=== PATIENT | male | born 1995 | race African-American/Black ===

== ENCOUNTER 2025-05-19 16:36 | Emergency (ER) | payer OTHER, MEDICAID ==
[~2025-05-19] VITALS: Ht 182.9 cm; Wt 91.0 kg
[2025-05-19 17:00] VITALS: TEMP 36.9; O2SAT 96
[2025-05-19 17:50] LABS: BASOPHILS % 0.3 % (0.0-2.0); EOSINOPHILS % 1.2 % (0.0-5.0); HEMATOCRIT. 43.9 % (42.0-52.0); HEMOGLOBIN. 14.6 g/dL (14.0-18.0); LYMPHOCYTES % 27.9 % (20.0-50.0); MEAN PLATELET VOLUME 9.4 fl (7.4-10.4); MONOCYTES % 8.2 % (2.0-8.0); NEUTROPHILS % 62.4 % (40.0-76.0); PLATELET 179 x1000/uL (130-400); RED BLOOD CELL COUNT 4.69 mill/uL (4.7-6.1); RED CELL DISTRIBUTION WIDTH 12.6 % (11.6-14.6)
[2025-05-19 18:00] LABS: CREATININE 1.2 mg/dL (0.6-1.3)
[2025-05-19 18:01] LABS: UREA NITROGEN BLOOD 12 mg/dL (9-23)
[2025-05-19] MEDS ORDERED: IBUPROFEN 800MG TABLET PO ONE (19:00)
[2025-05-19] MEDS ORDERED: FAMO40TA70 MT (20:08)
[2025-05-19 20:36] VITALS: BP 132/73; PULSE 70; RESP 14; O2SAT 100
== END 2025-05-19 20:37 | disposition home or self-care (01) ==
LOC: ER 16:36
DX: R10.31 Right lower quadrant pain (principal); J45.909 Unspecified asthma, uncomplicated
CPT/HCPCS: 36415; 74176; 80048; 85025; 99284